=== PATIENT | male | born 1965 ===

== ENCOUNTER 2021-05-23 13:55 | Emergency (ER) | payer SELFPAY ==
[2021-05-23 14:05] VITALS: BP 155/72
[2021-05-23] MEDS ORDERED: ONDANSETRON 4 MG/2 ML INJ IV ONE (18:41)
[2021-05-23] MEDS ORDERED: ACETAMINOPHEN 325 MG TAB PO ONE (18:41)
[2021-05-23] MEDS ORDERED: LACTATED RINGERS 1,000 ML IV ONE (18:41)
[2021-05-23] MEDS ORDERED: FAMOTIDINE 20 MG/2 ML INJ IV ONE (18:41)
--- NOTE | 2021-05-23 18:44 | Emergency Department Report ---
ED General Adult HPI - General Chief complaint: Weakness Stated complaint: weakness Time Seen by Provider: 05/23/21 18:20 Source: patient, family Mode of arrival: Ambulatory Limitations: Language Barrier (insole channeler Hanane Sin) - History of Present Illness Initial comments: The patient is a 55-year-old gentleman, with a body mass index of 27.4, who is not certain if he has any chronic medical conditions, who presents to the ER today with a primary complaint of feeling weak, tired, and fatigue. He also endorses lower abdominal cramping with some nausea. He has no severe headache, neck pain, or chest pain. On review of systems, endorses that he snores quite a bit at night, and reports that sleep is not restful. Denies irritative and obstructive urinary symptoms. Denies hematemesis and bright red blood per rectum. Also endorses chronic arthritic/joint pain in his bilateral shoulders, right greater than left. Reports that sensation of feeling tired and fatigued has been going on for some time, but gradually got worse over the past day or so. Lower abdominal cramping started a few hours ago. -: Gradual, hour(s) Location: abdomen Consistency: intermittent Improves with: none Worsens with: none - Related Data Previous Rx's Medication Instructions Recorded Last Taken Type Acetaminophen [Non-Aspirin Extra 500 mg PO Q6HR PRN #30 tablet 05/23/21 Unknown Rx Strength] Metoclopramide [Reglan] 10 mg PO QID PRN #30 tablet 05/23/21 Unknown Rx Allergies Allergy/AdvReac Type Severity Reaction Status Date / Time No Known Allergies Allergy Verified 05/23/21 14:03 ED Review of Systems ROS: Stated complaint: ALTERED MENTAL STATUS Other details as noted in HPI Constitutional: malaise, weakness. denies: fever Eyes: denies: eye discharge ENT: denies: epistaxis Respiratory: denies: cough Cardiovascular: denies: chest pain Gastrointestinal: abdominal pain, nausea Genitourinary: denies: urgency, dysuria, frequency, hematuria, testicular pain Neurological: weakness. denies: headache ED Past Medical Hx - Medications Home Medications: Home Medications Medication Instructions Recorded Confirmed Last Taken Type Acetaminophen [Non-Aspirin Extra 500 mg PO Q6HR PRN #30 tablet 05/23/21 Unknown Rx Strength] Metoclopramide [Reglan] 10 mg PO QID PRN #30 tablet 05/23/21 Unknown Rx ED Physical Exam - General Limitations: Language Barrier General appearance: alert, in no apparent distress - Head Head exam: Present: atraumatic, normocephalic - Eye Eye exam: Present: normal appearance, EOMI. Absent: nystagmus - ENT ENT exam: Present: normal exam, normal orophraynx, mucous membranes moist, normal external ear exam - Neck Neck exam: Present: normal inspection, full ROM. Absent: tenderness, meningismus - Respiratory Respiratory exam: Present: normal lung sounds bilaterally. Absent: respiratory distress, wheezes, rales, rhonchi, stridor, decreased breath sounds - Cardiovascular Cardiovascular Exam: Present: regular rate, normal rhythm, normal heart sounds. Absent: bradycardia, tachycardia, irregular rhythm, systolic murmur, diastolic murmur, rubs, gallop - GI/Abdominal GI/Abdominal exam: Present: soft, tenderness, other (There is lower abdominal tenderness to deep palpation.). Absent: distended, guarding, rebound, rigid, pulsatile mass - Rectal Rectal exam: Present: deferred - Extremities Exam Extremities exam: Present: normal inspection, full ROM, other (2+ pulses noted in the bilateral upper and lower extremities. There is no palpable cord. negative Homans sign. Muscular compartments are soft. The pelvis is stable.). Absent: pedal edema, calf tenderness - Back Exam Back exam: Present: normal inspection, full ROM. Absent: tenderness, CVA tenderness (R), CVA tenderness (L), paraspinal tenderness, vertebral tenderness - Neurological Exam Neurological exam: Present: alert, oriented X3, normal gait, other (No facial droop. Tongue midline. Extraocular movements intact bilaterally. Facial sensation intact to light touch in V1, V2, V3 distribution bilaterally. 5 and a 5 strength in 4 extremities. Sensation intact to light touch in 4 extremities.). Absent: motor sensory deficit - Psychiatric Psychiatric exam: Present: normal affect, normal mood - Skin Skin exam: Present: warm, dry, intact, normal color. Absent: rash ED Course Vital Signs 05/23/21 14:03 Temperature 97.7 F Pulse Rate 85 Respiratory 16 Rate Blood Pressure 155/72 [Left] O2 Sat by Pulse 98 Oximetry - Reevaluation(s) Reevaluation #1: 05/23/21 20:11 Differential diagnosis, including but not limited to: Obesity, obstructive sleep apnea, diabetes, hyperglycemia, thyroid derangement, electrolyte derangement, obstruction, colitis, diverticulitis, renal colic, malignancy Assessment and plan 55-year-old gentleman, who is afebrile, with essentially reassuring vital signs, with a primary complaint of feeling weak, fatigued, sleepy, secondary complaint of abdominal cramping with nausea and vomiting. Belly is minimally tender. Laboratory studies are essentially nonactionable. Urinalysis pending. EKG not consistent with STEMI. Low risk for major adverse cardiac event as per heart score; symptoms present for greater than 8 hours as per the patient, therefore, as per the [employer] clinical policy, myocardial infarction may be ruled out with 1 set of troponin/cardiac enzymes. We will treat his symptoms, obtain CT scan of the abdomen pelvis, and reassess. Discussed this with the patient using a insole channeler. He articulated understanding. Patient advised as the need to follow-up with outpatient primary care for evaluation for probable obstructive sleep apnea, which I suspect is the principal diagnosis present. Patient advised to lose weight, and that he would need an outpatient sleep study. 05/23/21 20:11 05/23/21 22:48 Urinalysis unremarkable. Laboratory studies unremarkable. Patient feels improved. CT scan abdomen pelvis negative for acute findings. Patient resting comfortably in stretcher and in no acute distress. He endorses improvement in symptoms. May follow-up with an outpatient primary care doctor for further evaluation and management ED Medical Decision Making - Lab Data Result diagrams: 05/23/21 19:26 05/23/21 19:26 Vital Signs 05/23/21 14:03 Temperature 97.7 F Pulse Rate 85 Respiratory 16 Rate Blood Pressure 155/72 [Left] O2 Sat by Pulse 98 Oximetry Lab Results 05/23/21 05/23/21 05/23/21 Range/Units 14:00 19:26 19:26 WBC 12.1 H (4.5-11.0) K/mm3 RBC 5.01 (3.65-5.03) M/mm3 Hgb 14.5 (11.8-15.2) gm/dl Hct 44.9 (35.5-45.6) % MCV 90 (84-94) fl MCH 29 (28-32) pg MCHC 32 (32-34) % RDW 13.6 (13.2-15.2) % Plt Count 219 (140-440) K/mm3 Lymph % (Auto) 10.4 L (13.4-35.0) % Sullivan % (Auto) 5.8 (0.0-7.3) % Eos % (Auto) 0.0 (0.0-4.3) % Baso % (Auto) 0.4 (0.0-1.8) % Lymph # (Auto) 1.3 (1.2-5.4) K/mm3 Sullivan # (Auto) 0.7 (0.0-0.8) K/mm3 Eos # (Auto) 0.0 (0.0-0.4) K/mm3 Baso # (Auto) 0.0 (0.0-0.1) K/mm3 Seg Neutrophils % 83.4 H (40.0-70.0) % Seg Neutrophils # 10.1 H (1.8-7.7) K/mm3 Sodium 136 L (137-145) mmol/L Potassium 4.2 (3.6-5.0) mmol/L Chloride 101.0 (98-107) mmol/L Carbon Dioxide 22 (22-30) mmol/L Anion Gap 17 mmol/L BUN 19 (9-20) mg/dL Creatinine 0.6 L (0.8-1.3) mg/dL Estimated GFR > 60 ml/min BUN/Creatinine Ratio 32 % Glucose 231 H (75-100) mg/dL POC Glucose 295 H (70-105) mg/dL Calcium 9.2 (8.4-10.2) mg/dL Magnesium 2.10 (1.7-2.3) mg/dL Total Bilirubin 0.70 (0.1-1.2) mg/dL AST 20 (5-40) units/L ALT 23 (7-56) units/L Alkaline Phosphatase 86 (35-129) units/L Troponin T < 0.010 (0.00-0.029) ng/mL Total Protein 7.2 (6.3-8.2) g/dL Albumin 4.5 (3.9-5) g/dL Albumin/Globulin Ratio 1.7 % - EKG Data -: EKG Interpreted by Mo EKG shows normal: sinus rhythm Rate: normal - EKG Data When compared to previous EKG there are: previous EKG unavailable 05/23/21 20:05 The EKG is interpreted at 19: 43 Sinus rhythm, 70 bpm. Normal axis, normal intervals, low voltage, and motion artifact. Abnormal EKG. Not a STEMI. There is no prior for comparison - Radiology Data Radiology results: pending, report reviewed, image reviewed CT ABDOMEN AND PELVIS WITH CONTRAST INDICATION / CLINICAL INFORMATION: Abdominal pain, with nausea and vomiting. TECHNIQUE: Axial CT images were obtained through the abdomen and pelvis after 100 cc Omnipaque [address] scans at this location are performed using CT dose reduction for ALARA by means of automated exposure control. COMPARISON: None available. FINDINGS: LOWER CHEST: No significant abnormality of the imaged chest. LIVER: Mild hepatic steatosis is not excluded. GALLBLADDER: No significant abnormality. BILE DUCTS: No significant abnormality. SPLEEN: No significant abnormality. PANCREAS: No significant abnormality. ADRENALS: No significant abnormality. RIGHT KIDNEY / URETER: No significant abnormality. LEFT KIDNEY / URETER: No significant abnormality. STOMACH / DUODENUM / SMALL BOWEL: No significant abnormality. COLON: No significant abnormality. APPENDIX: No significant abnormality. PERITONEUM: No free air or free fluid are present within the abdomen or pelvis. LYMPH NODES: No significant adenopathy. AORTA / ARTERIES: No significant abnormality. IVC / VEINS: No significant abnormality. URINARY BLADDER: No significant abnormality. REPRODUCTIVE ORGANS: No significant abnormality. ADDITIONAL ABDOMINAL/PELVIC FINDINGS: None. SKELETAL SYSTEM: No significant abnormality. IMPRESSION: 1. No imaging findings to suggest etiology of the provided symptoms. Signer Name: David Trejo II, MD Signed: 05/23/2021 9:19 PM Workstation Name: [id number] Critical care attestation.: If time is entered above; I have spent that time in minutes in the direct care of this critically ill patient, excluding procedure time. ED Disposition Clinical Impression: Hyperglycemia, Lower abdominal pain, Fatigue, History of nausea and vomiting Disposition: 01 HOME / SELF CARE / HOMELESS Is pt being admited?: No Does the pt Need Aspirin: No Condition: Good Additional Instructions: As we discussed, patient most likely has obstructive sleep apnea, and probable undiagnosed type 2 diabetes. Initial treatment is going to be to exercise, lose weight, and consume an appropriate diet, consisting of fiber, vegetables, lean protein, avoiding sugar, simple carbohydrates, and excessive starch consumption. We do recommend follow-up with an outpatient primary care doctor within the next month. Patient may also benefit from outpatient sleep study, which can be coordinated by an outpatient primary care doctor, or glass grinder, such as Dr. Richardson Recommend that patient not take metformin medication for the next 2 days, if he takes this medication. Advance diet as tolerated. Take the prescribed pain medications and nausea medications as needed and directed. Please return to the emergency room right away with new pain, worsened pain, migration of pain, projectile vomiting, change in mental status, confusion, inability tolerate liquid feeds, new, worsened or different symptoms not present on the initial emergency room evaluation Victoria comentamos, lo ms probable es que el paciente tenga apnea obstructiva del sueo y probablemente diabetes tipo 2 no diagnosticada. El tratamiento inicial ser hacer ejercicio, perder peso y consumir rajesh dieta adecuada, que consista en fibra, vegetales, protenas magras, evitando el azcar, los carbohidratos simples y el consumo excesivo de almidn. Recomendamos un seguimiento con un mdico de atencin primaria para pacientes ambulatorios dentro del prximo mes. El paciente deondre puede beneficiarse de un estudio del sueo ambulatorio, que puede ser coordinado por un mdico de atencin primaria ambulatorio o un neumlogo, clarence el Dr. Richardson. Recomendar al paciente que no tome metformina isma los prximos 2 mohamud, si hakeem garcía medicamento. Avanzar en la dieta segn tolerancia. [place]alls los analgsicos recetados y los medicamentos para las nuseas segn lo necesite y se lo indiquen. Regrese a la francia de emergencias de inmediato con dolor nuevo, empeoramiento del dolor, migracin del dolor, vmitos proyectiles, cambio en el estado mental, confusin, incapacidad para tolerar alimentos lquidos, sntomas nuevos, empeorados o diferentes que no estaban presentes en la evaluacin inicial de la francia de emergencia Referrals: SAROJ RICHARDSON MD [Staff Physician] - 3-5 Days [facility] [Provider Group] - 3-5 Days Forms: Work/School Release Form(ED) Print Language: ARABIC
[2021-05-23 19:48] LABS: Basophils % (Auto) 0.4 % (0.0-1.8); Hematocrit 44.9 % (35.5-45.6); Hemoglobin 14.5 gm/dl (11.8-15.2); Lymphocytes # (Auto) 1.3 K/mm3 (1.2-5.4); Lymphocytes % (Auto) 10.4 % (13.4-35.0); Mean Corpuscular HGB Conc 32 % (32-34); Mean Corpuscular Volume 90 fl (84-94); Monocytes # (Auto) 0.7 K/mm3 (0.0-0.8); Monocytes % (Auto) 5.8 % (0.0-7.3); Platelet Count 219 K/mm3 (140-440); Red Blood Count 5.01 M/mm3 (3.65-5.03); Red Cell Distribution Width 13.6 % (13.2-15.2)
[2021-05-23 20:02] LABS: Alanine Aminotransferase 23 units/L (7-56); Albumin 4.5 g/dL (3.9-5); Blood Urea Nitrogen 19 mg/dL (9-20); Calcium 9.2 mg/dL (8.4-10.2); Hemolysis Index 10
[2021-05-23 20:04] LABS: BUN/Creatinine Ratio 32
[2021-05-23 21:03] LABS: Mucus,Urine FEW /HPF; RBC,Urine < 1.0 /HPF (0.0-6.0); WBC,Urine < 1.0 /HPF (0.0-6.0)
[2021-05-23 21:05] LABS: Color,Urine Straw (Yellow)
[2021-05-23 21:15] LABS: Bilirubin,Urine Negative (Negative)
[2021-05-23 21:16] LABS: Blood,Urine NEG (Negative); Urobilinogen,Urine < 2.0 mg/dL (<2.0)
--- NOTE | 2021-05-23 22:23 | Cat Scan Report ---
CT ABDOMEN AND PELVIS WITH CONTRAST INDICATION / CLINICAL INFORMATION: Abdominal pain, with nausea and vomiting. TECHNIQUE: Axial CT images were obtained through the abdomen and pelvis after 100 cc Omnipaque [address] scans at this location are performed using CT dose reduction for ALARA by means of automated exposure control. COMPARISON: None available. FINDINGS: LOWER CHEST: No significant abnormality of the imaged chest. LIVER: Mild hepatic steatosis is not excluded. GALLBLADDER: No significant abnormality. BILE DUCTS: No significant abnormality. SPLEEN: No significant abnormality. PANCREAS: No significant abnormality. ADRENALS: No significant abnormality. RIGHT KIDNEY / URETER: No significant abnormality. LEFT KIDNEY / URETER: No significant abnormality. STOMACH / DUODENUM / SMALL BOWEL: No significant abnormality. COLON: No significant abnormality. APPENDIX: No significant abnormality. PERITONEUM: No free air or free fluid are present within the abdomen or pelvis. LYMPH NODES: No significant adenopathy. AORTA / ARTERIES: No significant abnormality. IVC / VEINS: No significant abnormality. URINARY BLADDER: No significant abnormality. REPRODUCTIVE ORGANS: No significant abnormality. ADDITIONAL ABDOMINAL/PELVIC FINDINGS: None. SKELETAL SYSTEM: No significant abnormality. IMPRESSION: 1. No imaging findings to suggest etiology of the provided symptoms. Signer Name: David Trejo II, MD Signed: 05/23/2021 10:19 PM Workstation Name: [id number]
--- NOTE | 2021-05-25 11:21 | Electrocardiograph Report ---
[facility] Test Date: 2021-05-23 Test Time: 19:43:58 Pat Name: EHSAN JOHNSON Department: Room: Gender: M Application Software Developer: JUAN : 1965 Requested By: MIGUE QUINONEZ Order Number: [id number] Reading MD: Sandor Smith Measurements Intervals [place] Rate: 70 P: 15 [place]: 165 QRS: 40 QRSD: 90 T: 24 QT: 383 QTc: 413 Interpretive Statements Sinus rhythm Low voltage, precordial leads No previous ECG available for comparison Electronically Signed On 05-25-2021 11:20:47 EDT by Sandor Smith
== END 2021-05-23 23:14 | disposition home or self-care (01) ==
LOC: ED 13:55
DX: R10.30 Lower abdominal pain, unspecified (principal); R11.2 Nausea with vomiting, unspecified; R73.9 Hyperglycemia, unspecified
CPT/HCPCS: 36415; 74177; 80053; 81001; 82962; 83735; 84443; 84484; 85025; 93005; 96361; 96374; 96375; 99284; J2405; J3490; J7120; Q9967